=== PATIENT | female | born 1945 | race Caucasian/White ===

== ENCOUNTER → 2016-12-06 | Day surgery (SDC) | payer MEDICARE, MEDICAID ==
[~2016-12-06] VITALS: Ht 170.2 cm; Wt 75.5 kg
[~2016-12-06] MED LIST: B COMPLEX1 EACH PO; CLARITIN10 MG PO; CLEOCIN T60 M1 TOP; COLACE100 MG PO; DULCOLAX10 MG R; FLONASE 50 MCG/16 GM NOSE; HYDROCODON-ACE1 EAC4 PO; LIPITOR20 M1 PO; MIRAPEX1 MG PO; MYCELEX10 MG PO; NAMENDA10 MG PO; NAPROSYN500 MG PO; OMEPRAZOLE40 MG PO; PROVENTIL OR V6.7 GM INH; PROZAC20 MG PO; PROZAC40 MG PO; ROCALTROL0.25 MCG PO; SEROQUEL50 MG PO; TAB-A-VITE1 EACH PO; TOPROL XL25 MG PO; ULTRAM50 MG PO
== END | disposition disaster alternative care site (69) ==
LOC: GPOC 11-29 14:00 → GEND 09:13 → GPOC 09:30
PROC: 0DJD8ZZ Inspection of Lower Intestinal Tract, Via Natural or Artificial Opening Endoscopic (ICD-10-PCS; principal; 2016-12-06)
PROC: 0DJ08ZZ Inspection of Upper Intestinal Tract, Via Natural or Artificial Opening Endoscopic (ICD-10-PCS; 2016-12-06)
DX: Z12.11 Encounter for screening for malignant neoplasm of colon (principal); K22.2 Esophageal obstruction; K21.9 Gastro-esophageal reflux disease without esophagitis; Z86.010 Personal history of colon polyps; Z80.0 Family history of malignant neoplasm of digestive organs; I25.10 Atherosclerotic heart disease of native coronary artery without angina pectoris; I10 Essential (primary) hypertension; M19.90 Unspecified osteoarthritis, unspecified site; E78.5 Hyperlipidemia, unspecified; F41.9 Anxiety disorder, unspecified; F32.9 Major depressive disorder, single episode, unspecified; Z88.1 Allergy status to other antibiotic agents; Z87.891 Personal history of nicotine dependence
CPT/HCPCS: 43235; G0105; C1726; J7030